=== PATIENT | female | born 1990 | race Caucasian/White ===

== ENCOUNTER → 2017-03-02 | Outpatient (REF) | payer OTHER | LOC: M LAB REF 18:44 | PROVIDERS: ATTEND Specialist | DX: R87.613 High grade squamous intraepithelial lesion on cytologic smear of cervix (HGSIL) (principal) ==

== ENCOUNTER → 2017-04-24 | Outpatient (CLI) | payer OTHER ==
[2017-04-24 13:37] LABS: BASO % 0.2 % (0.0-1.0); EOS % 0.6 % (0.0-3.0); HEMATOCRIT 40.4 % (36.0-47.0); HEMOGLOBIN 13.9 g/dl (12.0-16.0); IMMATURE GRANULOCYTE # 0.1 10^3/uL (0-0); IMMATURE GRANULOCYTE % 0.9 % (0-0); LYMPH # 0.8 10^3/uL (1.5-6.5); LYMPH % 14.6 % (24.0-44.0); MEAN CORPUSCULAR HEMOGLOBIN 30.3 pg (27.0-33.0); MEAN CORPUSCULAR HGB CONC 34.4 g/dl (32.0-36.5); MONO # 0.5 10^3/uL (0.0-0.8); MONO % 8.3 % (0.0-5.0); NEUTROPHILS # 4.1 10^3/uL (1.8-7.7); NEUTROPHILS % 75.4 % (36.0-66.0); PLATELET COUNT, AUTOMATED 127 10^3/uL (150-450); RED BLOOD COUNT 4.59 10^6/uL (4.00-5.40); RED CELL DISTRIBUTION WIDTH 13.2 % (11.5-14.5); WHITE BLOOD COUNT 5.4 10^3/uL (4.0-10.0)
[2017-04-24 14:07] LABS: RUBELLA IgG QUALITATIVE IMMUNE (IMMUNE)
[2017-04-24 14:08] LABS: HBsAg Prenatal NEGATIVE (NEGATIVE)
[2017-04-24 14:35] LABS: HIV 1&2 SCREEN CENTAUR NEGATIVE (NEGATIVE)
[2017-04-24 14:57] LABS: CHLAMYDIA DNA AMPLIFICATION NEGATIVE (NEGATIVE); GC DNA AMPLIFICATION NEGATIVE (NEGATIVE)
== END ==
LOC: M SMT 09:58
DX: Z36.89 Encounter for other specified antenatal screening (principal); Z3A.14 14 weeks gestation of pregnancy
CPT/HCPCS: 86762

== ENCOUNTER → 2017-06-08 | Outpatient (CLI) | payer OTHER | LOC: M RAD 10:00 | DX: Z36.89 Encounter for other specified antenatal screening (principal); Z3A.20 20 weeks gestation of pregnancy | CPT/HCPCS: 76811 ==

== ENCOUNTER → 2018-04-02 | Outpatient (REF) | payer OTHER | LOC: M LAB REF 17:39 | PROVIDERS: ATTEND Specialist | DX: R87.613 High grade squamous intraepithelial lesion on cytologic smear of cervix (HGSIL) (principal) ==

== ENCOUNTER → 2018-09-26 | Outpatient (CLI) | payer OTHER ==
[2018-09-26 17:43] LABS: BASO % 0.1 % (0.0-1.0); EOS # 0.1 10^3/uL (0.0-0.50); EOS % 0.8 % (0.0-3.0); HEMATOCRIT 38.1 % (36.0-47.0); HEMOGLOBIN 12.9 g/dl (12.0-15.5); LYMPH # 1.9 10^3/uL (1.5-6.5); LYMPH % 24.4 % (24.0-44.0); MEAN CORPUSCULAR HEMOGLOBIN 30.4 pg (27.0-33.0); MEAN CORPUSCULAR HGB CONC 33.9 g/dl (32.0-36.5); MEAN CORPUSCULAR VOLUME 89.6 fl (80.0-96.0); MONO # 0.5 10^3/uL (0.0-0.8); MONO % 6.9 % (0.0-5.0); NEUTROPHILS # 5.2 10^3/uL (1.8-7.7); NEUTROPHILS % 67.4 % (36.0-66.0); PLATELET COUNT, AUTOMATED 161 10^3/uL (150-450); RED BLOOD COUNT 4.25 10^6/uL (4.00-5.40); WHITE BLOOD COUNT 7.8 10^3/uL (4.0-10.0)
[2018-09-26 20:23] LABS: CHLAMYDIA DNA AMPLIFICATION NEGATIVE (NEGATIVE); GC DNA AMPLIFICATION NEGATIVE (NEGATIVE)
[2018-09-28 11:43] LABS: HEPATITIS C VIRUS ABY INDEX 0.1 INDEX (<0.8); HIV 1&2 SCREEN CENTAUR NEGATIVE (NEGATIVE); RUBELLA IgG QUALITATIVE IMMUNE (IMMUNE)
== END ==
LOC: M SMT 15:52
PROVIDERS: ATTEND Obstetrics & Gynecology
DX: Z34.81 Encounter for supervision of other normal pregnancy, first trimester (principal); Z3A.01 Less than 8 weeks gestation of pregnancy; Z36.89 Encounter for other specified antenatal screening

== ENCOUNTER → 2019-01-11 | Outpatient (CLI) | payer OTHER | LOC: M LAB 15:32 | PROVIDERS: ATTEND Advanced Practice Midwife | DX: Z34.82 Encounter for supervision of other normal pregnancy, second trimester (principal); Z3A.00 Weeks of gestation of pregnancy not specified ==

== ENCOUNTER → 2019-01-16 | Outpatient (CLI) | payer OTHER ==
[2019-01-16 10:07] LABS: HEMATOCRIT 35.5 % (36.0-47.0); HEMOGLOBIN 12.4 g/dl (12.0-15.5); MEAN CORPUSCULAR HEMOGLOBIN 33.4 pg (27.0-33.0); MEAN CORPUSCULAR HGB CONC 34.9 g/dl (32.0-36.5); MEAN CORPUSCULAR VOLUME 95.7 fl (80.0-96.0); PLATELET COUNT, AUTOMATED 155 10^3/uL (150-450); RED BLOOD COUNT 3.71 10^6/uL (4.00-5.40); WHITE BLOOD COUNT 10.4 10^3/uL (4.0-10.0)
== END ==
LOC: M LAB 08:14
PROVIDERS: ATTEND Advanced Practice Midwife
DX: Z34.82 Encounter for supervision of other normal pregnancy, second trimester (principal); Z3A.00 Weeks of gestation of pregnancy not specified
CPT/HCPCS: 36415; 82950; 85027; 86850; 86900; 86901; J2790

== ENCOUNTER → 2019-01-21 | Outpatient (CLI) | payer OTHER | LOC: M LAB 06:59 | PROVIDERS: ATTEND Advanced Practice Midwife | DX: Z36.89 Encounter for other specified antenatal screening (principal) ==

== ENCOUNTER → 2019-03-18 | Outpatient (REF) | payer OTHER | LOC: M SFHCWAGY 12:50 | PROVIDERS: ATTEND Obstetrics & Gynecology | DX: Z36.85 Encounter for antenatal screening for Streptococcus B (principal) ==

== ENCOUNTER 2019-04-09 00:51 | Inpatient (IN) | payer OTHER ==
[2019-04-09] VITALS (27 sets, daily range): BP systolic 88–126; BP diastolic 50–90
[~2019-04-09] VITALS: Ht 160 cm; Wt 88.7 kg
[2019-04-09 02:14] LABS: HEMATOCRIT 41.1 % (36.0-47.0); HEMOGLOBIN 13.9 g/dl (12.0-15.5); MEAN CORPUSCULAR HEMOGLOBIN 30.6 pg (27.0-33.0); MEAN CORPUSCULAR HGB CONC 33.8 g/dl (32.0-36.5); MEAN CORPUSCULAR VOLUME 90.5 fl (80.0-96.0); PLATELET COUNT, AUTOMATED 173 10^3/uL (150-450); RED BLOOD COUNT 4.54 10^6/uL (4.00-5.40); WHITE BLOOD COUNT 13.4 10^3/uL (4.0-10.0)
[2019-04-09] MEDS ORDERED: PRENTAB9 PO (02:23)
[2019-04-09] MEDS ORDERED: FENTANYL 2MCG/ML ROPIVACAINE 0.2% IN 0.9% NACL 100ML IVBAG As Ordered ONE (03:28)
[2019-04-09] MEDS ORDERED: LR 1,000 ML IV SCH (03:36)
[2019-04-09] MEDS ORDERED: LACTATED RINGER'S 1000 ML IV STA (03:36)
--- NOTE | 2019-04-09 03:36 | HPEPDOC ---
Obstetrical History & Physical General Date of Admission Apr 09, 2019 at 01:14 Primary Care Physician: ADELITA GAONA CNM History of Present Illness Patient is a 28-year-old female who is a at 39.5 weeks gestation with an VIK of 04/11/19 based off of her LMP and consistent with her 1t trimester ultr asound. She initiated care in her first trimester with [facility]. Her has been uncomplicated. Her last resulted in a medical termination due to multiple anomalies at 21 weeks gestation. She presented to L&D after spontaneously rupturing membranes to a large amount of clear fluid. She denies vaginal bleeding. She reports active movement and contractions. Chief Complaint: LOF, term Information Provided By: Patient Age: 3 : 0 Term: 0 Pre-term: 1 Abortions: 0 Livin Care Care: Good Care Dating Final EDC: Apr 11, 2019 Final EDC by: LMP EGA at Admission: 39.5 Antepartum Course Height (inches): 63 Pre- weight (lbs.): 167 Admission Weight (lbs.): 198 Change in Weight (lbs.): 31 Past Medical History Past Obstetrical History : Gestation: 21 Type of Delivery: Spontaneous Vaginal Del. (May 2017) Complications: Yes (medical termination due to multiple anomalies. ) [employer] History: Human papillomavirus(HPV) Past Medical History Medical History none Surgical History: Other (Adenoids, leep 2018) Family History Significant Family History: Asthma, Diabetes, Hypertension Social History Marital Status: Family situation: Spouse/partner home Psychosocial History: No pertinent psych hx * Smoker: non-smoker Alcohol: Denies Drugs: denies Abuse Violence Screening Have you been hit/kicked/slapp: No Have you been sexually assault: No Imunizations Tdap status: current Influenza Status: current Allergies Coded Allergies: NSAIDS (Non-Steroidal Anti-Inflamma (Verified Allergy, Unknown, HIVES, 04/09/19) cefaclor (Verified Allergy, Unknown, 04/09/19) sulfamethoxazole (Verified Allergy, Unknown, 04/09/19) trimethoprim (Verified Allergy, Unknown, 04/09/19) Medications Scheduled No.137/Iron/Folic Acd ( Vitamin Tablet) 1 Each Tablet, 1 TAB PO DAILY Physical Examination Physical Examination GENERAL: Alert and oriented times three. BREAST: . ABDOMEN: Gravid and non-tender to touch. FETUS: Is vertex (VTX) by sterile vaginal examination (SVE), fetus is vertex (VTX) by Antione. HEART RATE: Regular rate and rhythm. LUNGS: Clear to auscultation (CTA). EXTREMITIES: Generalized edema. No clonus. Deep tendon reflexes (DTRs) + 2. Vital Signs/I&O Vital Signs Date Time Temp Pulse Resp B/P (MAP) Pulse Ox O2 Delivery O2 Flow Rate FiO2 04/09/19 01:41 98.2 120 18 120/77 (91) Laboratory Data [facility] Laboratory Tests 2 04/09/19 01:15: Serology Scanned Report Hepatitis B Testing 04/09/19 02:00: Nucleated Red Blood Cells % (auto) 0.0 CBC/BMP Laboratory Tests 04/09/19 02:00 Urine Culture: No Growth Pertinent Laboratoy Data Blood Type: O- RBC Antibody Screen: Negative HIV: Negative Hepatitis B: Negative Hepatitis C: Negative Rapid Plasma Reagin: Nonreactive Rubella: Immune Chlamydia/Gonorrhea: Negative Group B Streptococcus: Negative Glucose Tolerance Test: 143 Diag/Inter Therapy NIPT low risk normal male; 3 hr GTT: 68, 114, 84, 47 Vaginal Examination Dilation: 3 cm Effacement: 80% Station: -2 Cervical Consistency: Soft Cervical Position: Posterior Presentation: Cephalic presentation Position: Vertex (occiput) Assessment Heart Rate (FHR): 130 Variability: Moderate Accelerations: Positive Decelerations: None Tocometer Contractions: Yes Frequency: irregular Assessment/Plan Assessment IUP at 39.5 weeks SROM Active labor at term GBS negative Category I FHR tracing. Plan Admit to L&D. OOB ad estuardo. Diet: clears. Group B Streptococcus (GBS) negative. Labs and intravenous (IV) per unit protocol. Anesthesia consult per patient's request. Lactated Ringers (LR): Bolus 800 mL bolus, then at 125 mL/hr. Anticipate cervical change and . ADELITA GAONA CNM Apr 09, 2019 03:35
[2019-04-09] MEDS ORDERED: REFRIGERATOR IV KEYS XX PRN (04:40)
[2019-04-09] MEDS ORDERED: diphenhydrAMINE INJ 50MG/ML VIAL (J1200) IV PRN (04:40)
[2019-04-09] MEDS ORDERED: LACTATED RINGER'S 1000 ML IV PRN (04:40)
[2019-04-09] MEDS ORDERED: EPIDURAL COMMENT XX SCH (04:40)
[2019-04-09] MEDS ORDERED: EPIDURAL/PCA KEYS XX PRN (04:40)
[2019-04-09] MEDS ORDERED: ONDANSETRON 4MG/2ML VIAL (J2405) IV PRN ×2 (04:40→13:15)
[2019-04-09] MEDS ORDERED: NALOXONE INJ 0.4 MG/1 ML VIAL (J2310) IV PRN (04:40)
[2019-04-09] MEDS ORDERED: FENTANYL/ROPIVACAINE/NACL BAG 100 ML EPIDURAL SCH (04:40)
[2019-04-09] MEDS ORDERED: OXYTOCIN 30 UNITS IN 0.9% NaCl 500ML IV BAG (J2590) As Ordered ONE (07:07)
[2019-04-09] MEDS ORDERED: OXYTOCIN DRIP 30 UNITS in IV 1 EA IV SCH (07:15)
[2019-04-09] MEDS: ePHEDrine SULFATE 25 MG/5 ML(5MG/ML) SYRINGE IV PRN ×2 (08:23→10:45)
[2019-04-09] MEDS: PRENATAL VITAMINS CHEWABLE TABLET PO SCH (09:00)
[2019-04-09] MEDS ORDERED: OXYTOCIN DRIP 30 UNITS in IV 1 EA IV ONE (13:15)
[2019-04-09] MEDS ORDERED: MEASLES,MUMPS,RUBELLA VACCINE INJ (MMR-II) (90707) SC SCH (13:15)
[2019-04-09] MEDS ORDERED: DIBUCAINE 1% OINTMENT 30GM TOP PRN (13:15)
[2019-04-09] MEDS ORDERED: RHOGAM 300 MCG (1500 IU) INJ (J2790) IM SCH (13:15)
[2019-04-09] MEDS ORDERED: ACETAMINOPHEN TAB 650MG DOSE (2X325MG) PO PRN (13:15)
[2019-04-09] MEDS ORDERED: METHYLERGONOVINE MALEATE 0.2 MG TAB PO PRN (13:15)
[2019-04-09] MEDS ORDERED: IBUPROFEN 600 MG TAB PO PRN (13:15)
[2019-04-09] MEDS ORDERED: IBUPROFEN 800 MG TAB PO PRN (13:15)
[2019-04-09] MEDS ORDERED: ADACEL/BOOSTRIX VACCINE (DIPHTH/PERTUSS/ACELL/TETANUS)0.5ML SYR (90715) IM ONE (16:00)
[2019-04-09] MEDS: ACETAMINOPHEN 500 MG TAB PO PRN (19:57)
[2019-04-09] MEDS: DOCUSATE SODIUM 100 MG CAP PO PRN (19:57)
--- NOTE | 2019-04-09 21:47 | DN ---
DATE OF DELIVERY: 04/09/2019 PREDELIVERY DIAGNOSIS: 39-5/7 weeks gestation, spontaneous labor. POSTDELIVERY DIAGNOSIS: Delivered. PROCEDURE: Spontaneous vaginal delivery. [employer] WORKER: Jeff Andres MD ANESTHESIA: Epidural. ESTIMATED BLOOD LOSS: 300 mL. FINDINGS: 7 pound 13 ounce male . scores 8 and 9. DELIVERY SUMMARY: Early during the second stage, the patient was noted to be in left occiput posterior position. Manual rotation to left occiput anterior was performed with success. The second stage lasted approximately 40 minutes before the patient had spontaneous delivery of a 7 pound 13 ounce male infant, scores 8 and 9 under epidural anesthesia. Loose nuchal cord times one was delivered through. The shoulders delivered with ease. The infant was handed to the mother and cried immediately. The cord was doubly clamped and cut. The placenta delivered spontaneously and appeared to be intact. The patient received IV Pitocin immediately after delivery of the placenta. There were no vaginal lacerations present. Sponge counts were correct.
[2019-04-10 06:20] VITALS: BP 113/64
[2019-04-10] MEDS: PRENATAL VITAMINS CHEWABLE TABLET PO SCH (08:47)
[2019-04-10] MEDS ORDERED: ADACEL/BOOSTRIX VACCINE (DIPHTH/PERTUSS/ACELL/TETANUS)0.5ML SYR (90715) IM ONE (09:00)
[2019-04-10 17:45] VITALS: BP 109/68
[2019-04-10] MEDS: DOCUSATE SODIUM 100 MG CAP PO PRN (22:29)
[2019-04-10] MEDS: ACETAMINOPHEN 500 MG TAB PO PRN (22:30)
[2019-04-11 05:47] VITALS: BP 115/56
[2019-04-11] MEDS: PRENATAL VITAMINS CHEWABLE TABLET PO SCH (08:23)
--- NOTE | 2019-04-12 13:17 | DSES ---
DATE OF ADMISSION: 04/09/2019 DATE OF DISCHARGE: 04/11/2019 DISCHARGE DIAGNOSIS: Spontaneous vaginal delivery at term following induction of labor, day #2, stable condition. HISTORY: Lesley is a 28-year-old 2, para 1-1-0-1 now who underwent induction of labor at a term . She did deliver a live male , vaginally weighing 7 pounds 13 ounces, scores 8 and 9. Her perineum and vagina were intact. Estimated blood loss was 300 mL. Her course has been uneventful. She is breast-feeding successfully. She is voiding without difficulty, passing flatus. Her pain has been well managed with ibuprofen. She is requesting discharge to home today. Vital signs are stable. Her breasts are soft, nontender. No lumps, redness, warmth or swelling. Her abdomen is fundus firm at one fingerbreadth below umbilicus. Perineum with no hematoma and no edema. Lochia rubra moderate. PLAN: Discharge the patient home today. I did review discharge instructions, including breast care, carly care, pelvic rest, activity and lifting restrictions, danger signs and access to care. She is to follow up at [facility] for visit in 6 weeks. The patient had all of her questions answered and is agreeable to discharge home today.
== END 2019-04-11 11:22 | disposition home or self-care (01) | DRG 807 ==
LOC: M LDO 00:51 → M LDI 01:14 → M OBS 14:57
PROVIDERS: ADMIT Advanced Practice Midwife; ATTEND Advanced Practice Midwife
PROC: 10E0XZZ Delivery of Products of Conception, External Approach (ICD-10-PCS; principal; 2019-04-09)
DX: O69.81X0 Labor and delivery complicated by cord around neck, without compression, not applicable or unspecified (principal); Z37.0 Single live birth; Z3A.39 39 weeks gestation of pregnancy

== ENCOUNTER 2019-08-08 05:29 | Emergency (ER) | payer OTHER ==
[~2019-08-08] VITALS: Ht 160 cm; Wt 84.1 kg
[~2019-08-08 05:29] MED LIST: PRENTAB9 PO
[2019-08-08] MEDS ORDERED: LARI1TAB5 PO (05:42)
[2019-08-08 06:38] LABS: BASO % 0.3 % (0.0-1.0); EOS # 0.1 10^3/uL (0.0-0.5); EOS % 0.8 % (0.0-3.0); HEMATOCRIT 42.2 % (36.0-47.0); HEMOGLOBIN 14.6 g/dl (12.0-15.5); LYMPH % 38.2 % (24.0-44.0); MEAN CORPUSCULAR HEMOGLOBIN 30.2 pg (27.0-33.0); MEAN CORPUSCULAR HGB CONC 34.6 g/dl (32.0-36.5); MEAN CORPUSCULAR VOLUME 87.4 fl (80.0-96.0); MONO # 0.5 10^3/uL (0.0-0.8); MONO % 6.1 % (0.0-5.0); NEUTROPHILS # 4.2 10^3/uL (1.5-8.5); NEUTROPHILS % 54.2 % (36.0-66.0); PLATELET COUNT, AUTOMATED 207 10^3/uL (150-450); RED BLOOD COUNT 4.83 10^6/uL (4.00-5.40); WHITE BLOOD COUNT 7.7 10^3/uL (4.0-10.0)
[2019-08-08 06:55] LABS: ALBUMIN 4.1 GM/DL (3.2-5.2); ALT/SGPT 36 U/L (12-78); BILIRUBIN,TOTAL 0.8 MG/DL (0.2-1.0); BLOOD UREA NITROGEN 13 MG/DL (7-18); CARBON DIOXIDE LEVEL 24 MEQ/L (21-32); CHLORIDE LEVEL 106 MEQ/L (98-107); GLOMERULAR FILTRATION RATE > 60.0 (>60); GLUCOSE, FASTING 86 MG/DL (70-100); POTASSIUM SERUM 3.7 MEQ/L (3.5-5.1); SODIUM LEVEL 138 MEQ/L (136-145); TOTAL PROTEIN 7.9 GM/DL (6.4-8.2)
[2019-08-08 07:03] LABS: HCG, SERUM QUALITATIVE NEGATIVE (NEGATIVE)
[2019-08-08 07:14] LABS: HIVEXPOSED0 NEGATIVE (NEGATIVE)
[2019-08-08 07:28] VITALS: BP 135/85
[2019-08-09 11:10] LABS: HEPATITIS B SURFACE ANTIBODY POSITIVE (POSITIVE)
[2019-08-09 11:18] LABS: HEPATITIS C VIRUS ABY INDEX 0.1 INDEX (<0.8)
[2019-08-09 11:20] LABS: HEPATITIS B SURFACE ANTIGEN NEGATIVE (NEGATIVE)
== END 2019-08-08 07:42 | disposition home or self-care (01) ==
LOC: M ED 05:29
DX: Z77.21 Contact with and (suspected) exposure to potentially hazardous body fluids (principal); S69.82XA Other specified injuries of left wrist, hand and finger(s), initial encounter; W46.1XXA Contact with contaminated hypodermic needle, initial encounter; Y92.238 Other place in hospital as the place of occurrence of the external cause; Y93.F9 Activity, other caregiving; Y99.0 Civilian activity done for income or pay; Z88.8 Allergy status to other drugs, medicaments and biological substances; Z88.1 Allergy status to other antibiotic agents; Z88.2 Allergy status to sulfonamides

== ENCOUNTER → 2020-02-20 | Outpatient (CLI) | payer SELFPAY ==
[~2020-02-20] MED LIST changes: +LARI1TAB5 PO
== END ==
LOC: M LABSMTC 14:43
PROVIDERS: ATTEND Pediatrics
DX: Z20.828 Contact with and (suspected) exposure to other viral communicable diseases (principal)

== ENCOUNTER → 2020-12-01 | Outpatient (CLI) | payer OTHER ==
[2020-12-01 15:23] LABS: HEMATOCRIT 40.6 % (36.0-47.0); MEAN CORPUSCULAR HEMOGLOBIN 30.9 pg (27.0-33.0); MEAN CORPUSCULAR HGB CONC 34.5 g/dl (32.0-36.5); MEAN CORPUSCULAR VOLUME 89.6 fl (80.0-96.0); PLATELET COUNT, AUTOMATED 156 10^3/uL (150-450); RED BLOOD COUNT 4.53 10^6/uL (4.00-5.40); WHITE BLOOD COUNT 8.3 10^3/uL (4.0-10.0)
[2020-12-01 16:52] LABS: GC DNA AMPLIFICATION NEGATIVE (NEGATIVE)
[2020-12-02 13:00] LABS: HEPATITIS C VIRUS ABY INDEX 0.1 INDEX (<0.8); HIV 1&2 SCREEN CENTAUR NEGATIVE (NEGATIVE)
== END ==
LOC: M PLALAB 11:38
PROVIDERS: ATTEND Specialist
DX: Z34.81 Encounter for supervision of other normal pregnancy, first trimester (principal)

== ENCOUNTER → 2020-12-24 | Outpatient (REF) | LOC: M EMP 13:26 | PROVIDERS: ATTEND Family Medicine | DX: Z20.822 Contact with and (suspected) exposure to COVID-19 (principal) ==

== ENCOUNTER → 2021-01-22 | Outpatient (REF) ==
[2021-01-22 09:00] LABS: RSV AMPLIFICATION NEGATIVE (NEGATIVE)
== END ==
LOC: M EMP 08:00
PROVIDERS: ATTEND Family Medicine
DX: Z11.52 Encounter for screening for COVID-19 (principal); Z20.822 Contact with and (suspected) exposure to COVID-19

== ENCOUNTER → 2021-02-16 | Outpatient (CLI) | payer BC | LOC: M WHC 09:35 | PROVIDERS: ATTEND Advanced Practice Midwife | DX: Z36.9 Encounter for antenatal screening, unspecified (principal); Z3A.23 23 weeks gestation of pregnancy ==

== ENCOUNTER → 2021-03-08 | Outpatient (CLI) | payer BC ==
[2021-03-08 15:23] LABS: HEMATOCRIT 36.5 % (36.0-47.0); HEMOGLOBIN 12.4 g/dl (12.0-15.5); MEAN CORPUSCULAR HEMOGLOBIN 31.8 pg (27.0-33.0); MEAN CORPUSCULAR VOLUME 93.6 fl (80.0-96.0); PLATELET COUNT, AUTOMATED 182 10^3/uL (150-450); WHITE BLOOD COUNT 11.6 10^3/uL (4.0-10.0)
[2021-03-08 16:56] LABS: GC DNA AMPLIFICATION NEGATIVE (NEGATIVE)
== END ==
LOC: M PLALAB 12:37
PROVIDERS: ATTEND Specialist
DX: Z34.82 Encounter for supervision of other normal pregnancy, second trimester (principal)

== ENCOUNTER → 2021-04-12 | Outpatient (CLI) | payer BC | LOC: M LAB 07:24 | PROVIDERS: ATTEND Specialist | DX: Z34.82 Encounter for supervision of other normal pregnancy, second trimester (principal); Z3A.00 Weeks of gestation of pregnancy not specified ==

== ENCOUNTER → 2021-05-18 | Outpatient (REF) | payer BC | LOC: M SFHCWAGY 09:46 | PROVIDERS: ATTEND Specialist | DX: Z36.85 Encounter for antenatal screening for Streptococcus B (principal) ==

== ENCOUNTER 2021-06-14 04:57 | Inpatient (IN) | payer BC ==
[~2021-06-14] VITALS: Ht 160 cm; Wt 88.8 kg
[2021-06-14] MEDS ORDERED: PRIL20TA2 PO (05:14)
[2021-06-14] MEDS ORDERED: TUMS500C PO (05:14)
[2021-06-14] MEDS ORDERED: HOME MED LIST COMPLETE! XX SCH (05:15)
[2021-06-14 05:21] VITALS: BP 124/82
[2021-06-14 05:55] LABS: HEMATOCRIT 40.7 % (36.0-47.0); MEAN CORPUSCULAR HEMOGLOBIN 30.6 pg (27.0-33.0); MEAN CORPUSCULAR HGB CONC 34.4 g/dl (32.0-36.5); MEAN CORPUSCULAR VOLUME 89.1 fl (80.0-96.0); PLATELET COUNT, AUTOMATED 120 10^3/uL (150-450); RED BLOOD COUNT 4.57 10^6/uL (4.00-5.40); WHITE BLOOD COUNT 13.2 10^3/uL (4.0-10.0)
[2021-06-14 06:28] VITALS: BP 130/85
[2021-06-14] MEDS ORDERED: OXYTOCIN 30 UNITS IN 0.9% NaCl 500ML IV BAG (J2590) As Ordered ONE (06:40)
[2021-06-14 07:09] LABS: CORD GAS ABE V -5.7; CORD GAS HCO3 V 20.3 MEQ/L; CORD GAS O2 SAT V 71.5 %; CORD GAS PCO2 V 41.4 mmHg; CORD GAS PH V 7.308 UNITS; CORD GAS PO2 V 30.3 mmHg; CORD GAS SBC V 19.2 MEQ/L; CORD GAS TCO2 V 21.6 MEQ/L
[2021-06-14] MEDS ORDERED: DOCUSATE SODIUM 100MG CAPSULE PO PRN (07:25)
[2021-06-14] MEDS ORDERED: METHYLERGONOVINE MALEATE 0.2 MG TAB PO PRN (07:25)
[2021-06-14] MEDS ORDERED: OXYTOCIN DRIP 30 UNITS in IV 1 EA IV SCH (07:25)
[2021-06-14] MEDS ORDERED: RHOGAM 300 MCG (1500 IU) INJ (J2790) IM SCH (07:25)
[2021-06-14] MEDS ORDERED: ACETAMINOPHEN 500 MG TAB PO PRN (07:25)
[2021-06-14] MEDS ORDERED: MEASLES,MUMPS,RUBELLA VACCINE INJ (MMR-II) (90707) SC SCH (07:25)
[2021-06-14] MEDS ORDERED: IBUPROFEN 600MG TAB PO PRN (07:25)
[2021-06-14] MEDS ORDERED: ACETAMINOPHEN TAB 650MG DOSE (2X325MG) PO PRN (07:25)
[2021-06-14] MEDS: PRENATAL VITAMINS CHEWABLE TABLET PO SCH (09:15)
[2021-06-14 09:52] VITALS: BP 130/58
[2021-06-14] MEDS: IBUPROFEN 800 MG TAB PO PRN (17:46)
[2021-06-14 18:00] VITALS: BP 122/58
[2021-06-15 06:10] VITALS: BP 133/72
[2021-06-15] MEDS: PRENATAL VITAMINS CHEWABLE TABLET PO SCH (08:13)
[2021-06-15] MEDS: IBUPROFEN 800 MG TAB PO PRN (08:16)
[2021-06-15] MEDS ORDERED: ACET-683 PO (09:54)
[2021-06-15] MEDS ORDERED: IBUP-1022 PO (09:54)
[2021-06-15] MEDS ORDERED: COLA100C5 PO (09:54)
== END 2021-06-15 17:40 | disposition home or self-care (01) | DRG 560 ==
LOC: M LDO 04:57 → M LDI 05:25 → M OBS 09:45
PROVIDERS: ADMIT Obstetrics & Gynecology; ATTEND Obstetrics & Gynecology
PROC: 10E0XZZ Delivery of Products of Conception, External Approach (ICD-10-PCS; principal; 2021-06-14)
PROC: 10907ZC Drainage of Amniotic Fluid, Therapeutic from Products of Conception, Via Natural or Artificial Opening (ICD-10-PCS; 2021-06-14)
DX: O69.81X0 Labor and delivery complicated by cord around neck, without compression, not applicable or unspecified (principal); Z3A.40 40 weeks gestation of pregnancy; Z37.0 Single live birth

== ENCOUNTER → 2021-12-07 | Outpatient (REF) ==
[~2021-12-07] MED LIST changes: +ACET-683 PO; +COLA100C5 PO; +IBUP-1022 PO; +PRIL20TA2 PO; +TUMS500C PO
== END ==
LOC: M LABSMTC 10:12
PROVIDERS: ATTEND Family Medicine
DX: Z20.822 Contact with and (suspected) exposure to COVID-19 (principal)

== ENCOUNTER → 2022-05-01 | Outpatient (REF) | LOC: M LABSMTC 10:34 → MERGE 10:34 | PROVIDERS: ATTEND Family Medicine | DX: Z20.822 Contact with and (suspected) exposure to COVID-19 (principal) ==